=== PATIENT | female | born 2000 | race Caucasian/White ===

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

== ENCOUNTER 2021-06-19 18:41 | Emergency (ER) | payer BC ==
[2021-06-19] MEDS ORDERED: Reglan 10 MG/2 ML IV ONE (18:53)
[2021-06-19] MEDS ORDERED: Sodium Chloride 0.9% 1000 ML 1,000 ML IV STA (18:53)
[2021-06-19] MEDS ORDERED: Reglan 10 MG/2 ML ONE (18:56)
[2021-06-19] MEDS ORDERED: Sodium Chloride 0.9% 1000 ML 1,000 ML ONE (18:56)
[2021-06-19 19:02] LABS: Absolute Neutrophil Ct (ANC) 8.84 (1.4-6.9); BASOPHIL % 0.2 % (0.0-0.4); Basophil (Absolute #) 0.02 (0-0.4); Eosinophil % 0.7 % (0.00-5.0); Eosinophil (Absolute #) 0.09 (0-0.5); Hematocrit 38.1 % (35-47); Hemoglobin 13.2 gm/dl (12.0-16.0); Lymphocyte (Absolute #) 3.31 (1.0-4.6); Lymphocytes % 25.3 % (24.0-44.0); Mean Corpuscular Hemoglobin 30.8 pg (26-32); Mean Corpuscular Hgb Concent. 34.6 g/dl (32-36); Mean Platelet Volume 9.8 fl (7.5-11.0); Monocyte (Absolute #) 0.82 (0.0-1.3); Monocytes % 6.3 % (0.0-12.0); Neutrophil % 67.5 % (36.0-66.0); Platelet Count 323 K/mm3 (150-450); Red Blood Count 4.28 M/mm3 (4.1-5.4); Red Cell Distribution Width 12.8 % (11.5-14.0); White Blood Count 13.1 K/mm3 (4.0-10.5)
--- NOTE | 2021-06-19 19:08 | ERPHSYRPT ---
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 She is approximately 6 weeks gestation and she is not retaining fluids and has not had any care to this point. Timing/Duration: worse Activities at Onset: none Quality: cramping Abdominal Pain Onset Location: epigastric Pain Radiation: no radiation Severity of Pain-Max: mild Severity of Pain-Current: mild Modifying Factors: Improves With: eating, vomiting Associated Symptoms: loss of appetite, nausea, vomiting Previous symptoms: no prior history Allergies/Adverse Reactions: No Known Drug Allergies Allergy (Verified 06/19/21 18:53) Hx Tetanus, Diphtheria Vaccination/Date Given: Yes Hx Influenza Vaccination/Date Given: No Hx Pneumococcal Vaccination/Date Given: No Travel Risk - International Travel Have you traveled outside of the country in past 3 weeks: No - Coronavirus Screening Are you exhibiting any of the following symptoms?: No Close contact with a COVID-19 positive Pt in past 14-21 Days: No - Vaccine Status Have you recieved a Covid-19 vaccination: No - Review of Systems Constitutional: No Fever, No Chills Eyes: No Symptoms Ears, Nose, & Throat: No Symptoms Respiratory: No Cough, No Dyspnea Cardiac: No Chest Pain, No Edema, No Syncope Abdominal/Gastrointestinal: Nausea, Vomiting, No Abdominal Pain, No Diarrhea Genitourinary Symptoms: No Dysuria Musculoskeletal: No Back Pain, No Neck Pain Skin: No Rash Neurological: No Dizziness, No Focal Weakness, No Sensory Changes Psychological: No Symptoms Endocrine: No Symptoms All Other Systems: Reviewed and Negative - Past Medical History Pertinent Past Medical History: No Neurological History: No Pertinent History ENT History: No Pertinent History Cardiac History: No Pertinent History Respiratory History: No Pertinent History Endocrine Medical History: No Pertinent History Musculoskeletal History: No Pertinent History GI Medical History: No Pertinent History History: No Pertinent History Psycho-Social History: No Pertinent History Female Reproductive Disorders: No Pertinent History Other Medical History: 4 molars removed 7 years ago - Past Surgical History Past Surgical History: No Neuro Surgical History: No Pertinent History Cardiac: No Pertinent History Respiratory: No Pertinent History Gastrointestinal: No Pertinent History Genitourinary: No Pertinent History Musculoskeletal: No Pertinent History Female Surgical History: No Pertinent History - Social History Smoking Status: Current every day smoker How long have you smoked: 5 yrs Exposure to second hand smoke: Yes Drug Use: none Patient Lives Alone: No - Female History Hx Last Menstrual Period: 05/03/2021 Hx Now: Yes - Nursing Vital Signs Nursing Vital Signs: Initial Vital Signs Temperature 97.4 F 06/19/21 18:44 Pulse Rate 102 H 06/19/21 18:44 Blood Pressure 130/92 06/19/21 18:44 O2 Sat by Pulse Oximetry 100 06/19/21 18:44 Pain Scale Pain Intensity 0 - Physical Exam General Appearance: no apparent distress, alert Eye Exam: PERRL/EOMI, eyes nml inspection Ears, Nose, Throat Exam: normal ENT inspection, pharynx normal, moist mucous membranes Neck Exam: normal inspection, non-tender, supple, full range of motion Respiratory Exam: normal breath sounds, lungs clear, No respiratory distress Cardiovascular Exam: regular rate/rhythm, normal heart sounds Gastrointestinal/Abdomen Exam: soft, normal bowel sounds, No tenderness, No mass Back Exam: normal inspection, normal range of motion, No CVA tenderness, No vertebral tenderness Extremity Exam: normal inspection, normal range of motion, pelvis stable Neurologic Exam: alert, oriented x 3, cooperative, normal mood/affect, nml cerebellar function, sensation nml, No motor deficits Skin Exam: normal color, warm, dry SpO2 Interpretation: normal SpO2: 100 O2 Delivery: Room Air - Course Nursing assessment & vital signs reviewed: Yes Ordered Tests: Active Orders 24 hr Category Date Time Status IV Insertion STAT Care 06/19/21 18:53 Active AMYLASE Stat Lab 06/19/21 18:58 Completed CBC W DIFF Stat Lab 06/19/21 18:58 Completed CMP Stat Lab 06/19/21 18:58 Completed HCG QUALITATIVE,SERUM Stat Lab 06/19/21 19:00 Completed LIPASE Stat Lab 06/19/21 18:58 Completed UA W/RFX UR CULTURE Stat Lab 06/19/21 18:53 Ordered Medication Summary Discontinued Medications Generic Name Dose Route Start Last Admin Trade Name Adelaide PRN Reason Stop Dose Admin Sodium Chloride 1,000 mls @ 999 mls/hr 06/19/21 18:53 06/19/21 18:59 Sodium Chloride 0.9% 1000 Ml IV 06/19/21 19:53 999 mls/hr .Q1H1M STA Administration Sodium Chloride Confirm 06/19/21 18:56 Sodium Chloride 0.9% 1000 Ml Administered 06/19/21 18:57 Dose 1,000 mls @ ud .ROUTE .STK-MED ONE Metoclopramide HCl 10 mg 06/19/21 18:53 06/19/21 18:59 Reglan 10 Mg/2 Ml IV 06/19/21 18:54 10 mg STAT ONE Administration Metoclopramide HCl Confirm 06/19/21 18:56 Reglan 10 Mg/2 Ml Administered 06/19/21 18:57 Dose 10 mg .ROUTE .STK-MED ONE Lab/Rad Data: Laboratory Result Diagrams 06/19/21 18:58 06/19/21 18:58 Laboratory Results 06/19/21 06/19/21 06/19/21 Range/Units 19:08 19:00 18:58 WBC (4.0-10.5) K/mm3 RBC (4.1-5.4) M/mm3 Hgb (12.0-16.0) gm/dl Hct (35-47) % MCV (78-100) fl MCH (26-32) pg MCHC (32-36) g/dl RDW (11.5-14.0) % Plt Count (150-450) K/mm3 MPV (7.5-11.0) fl Gran % (36.0-66.0) % Eos # (Auto) (0-0.5) Absolute Lymphs (auto) (1.0-4.6) Absolute Monos (auto) (0.0-1.3) Lymphocytes % (24.0-44.0) % Monocytes % (0.0-12.0) % Eosinophils % (0.00-5.0) % Basophils % (0.0-0.4) % Absolute Granulocytes (1.4-6.9) Basophils # (0-0.4) Sodium 135 L (137-145) mmol/L Potassium 3.6 (3.5-5.1) mmol/L Chloride 103 (98-107) mmol/L Carbon Dioxide 19 L (22-30) mmol/L Anion Gap 17.3 H (5-15) MEQ/L BUN 4 L (7-17) mg/dL Creatinine 0.56 (0.52-1.04) mg/dL Estimated GFR > 60.0 ML/MIN Glucose 82 (74-106) mg/dL Calcium 9.7 (8.4-10.2) mg/dL Total Bilirubin 0.60 (0.2-1.3) mg/dL AST 21 (14-36) U/L ALT 11 (0-35) U/L Alkaline Phosphatase 76 (38-126) U/L Serum Total Protein 7.5 (6.3-8.2) g/dL Albumin 4.5 (3.5-5.0) g/dL Amylase 74 (30-110) U/L Lipase 101 (23-300) U/L Serum , Qual POSITIVE (Negative) SARS-CoV-2 (PCR) NEGATIVE (NEGATIVE) 06/19/21 Range/Units 18:58 WBC 13.1 H (4.0-10.5) K/mm3 RBC 4.28 (4.1-5.4) M/mm3 Hgb 13.2 (12.0-16.0) gm/dl Hct 38.1 (35-47) % MCV 89.0 (78-100) fl MCH 30.8 (26-32) pg MCHC 34.6 (32-36) g/dl RDW 12.8 (11.5-14.0) % Plt Count 323 (150-450) K/mm3 MPV 9.8 (7.5-11.0) fl Gran % 67.5 H (36.0-66.0) % Eos # (Auto) 0.09 (0-0.5) Absolute Lymphs (auto) 3.31 (1.0-4.6) Absolute Monos (auto) 0.82 (0.0-1.3) Lymphocytes % 25.3 (24.0-44.0) % Monocytes % 6.3 (0.0-12.0) % Eosinophils % 0.7 (0.00-5.0) % Basophils % 0.2 (0.0-0.4) % Absolute Granulocytes 8.84 H (1.4-6.9) Basophils # 0.02 (0-0.4) Sodium (137-145) mmol/L Potassium (3.5-5.1) mmol/L Chloride (98-107) mmol/L Carbon Dioxide (22-30) mmol/L Anion Gap (5-15) MEQ/L BUN (7-17) mg/dL Creatinine (0.52-1.04) mg/dL Estimated GFR ML/MIN Glucose (74-106) mg/dL Calcium (8.4-10.2) mg/dL Total Bilirubin (0.2-1.3) mg/dL AST (14-36) U/L ALT (0-35) U/L Alkaline Phosphatase (38-126) U/L Serum Total Protein (6.3-8.2) g/dL Albumin (3.5-5.0) g/dL Amylase (30-110) U/L Lipase (23-300) U/L Serum , Qual (Negative) SARS-CoV-2 (PCR) (NEGATIVE) - Progress Progress: improved - Departure Departure Disposition: Home Clinical Impression: Excessive vomiting Condition: Stable Critical Care Time: No Referrals: THERESA ACEVEDO [Primary Care Provider] - Instructions: Nausea and Vomiting of (DC) Prescriptions: Metoclopramide HCl 10 mg [Reglan 10 MG] 10 mg PO Q6H 3 Days #12 tablet
[2021-06-19 19:10] LABS: ALBUMIN 4.5 g/dL (3.5-5.0); ALKALINE PHOSPHATASE 76 U/L (38-126); AMYLASE 74 U/L (30-110); ANION GAP 17.3 MEQ/L (5-15); BLOOD UREA NITROGEN 4 mg/dL (7-17); CHLORIDE 103 mmol/L (98-107); Calcium 9.7 mg/dL (8.4-10.2); Carbon Dioxide 19 mmol/L (22-30); Creatinine 1 0.56 mg/dL (0.52-1.04); EST GLOMERULAR FILTRATION RATE > 60.0 ML/MIN; Glucose 82 mg/dL (74-106); LIPASE 101 U/L (23-300); Potassium 3.6 mmol/L (3.5-5.1); SGOT/AST 21 U/L (14-36); SGPT/ALT 11 U/L (0-35); SODIUM 135 mmol/L (137-145); Total Protein 7.5 g/dL (6.3-8.2)
[2021-06-19 20:09] VITALS: BP 102/70; PULSE 92
[2021-06-19 20:10] VITALS: O2SAT 100
== END 2021-06-19 20:17 | disposition home or self-care (01) ==
LOC: ED 18:41
DX: O21.9 Vomiting of pregnancy, unspecified (principal); Z34.01 Encounter for supervision of normal first pregnancy, first trimester; Z3A.01 Less than 8 weeks gestation of pregnancy
CPT/HCPCS: 36000; 36415; 80053; 81025; 82150; 83690; 85025; 96374; 99284; U0003

== ENCOUNTER 2021-12-11 16:07 | Observation (INO) | payer BC ==
[2021-12-11 17:41] LABS: Amphetamine,Urine NEGATIVE (NEGATIVE); Barbiturate,Urine NEGATIVE (NEGATIVE); Benzodiazepine,Urine NEGATIVE (NEGATIVE); Cocaine,Urine NEGATIVE (NEGATIVE); Methadone,Urine NEGATIVE (NEGATIVE); Opiate,Urine NEGATIVE (NEGATIVE); PCP,Urine NEGATIVE (NEGATIVE); THC,Urine POSITIVE (NEGATIVE)
[2021-12-11 18:25] VITALS: BP 118/77; PULSE 104; O2SAT 100
== END 2021-12-11 17:30 | disposition home or self-care (01) ==
LOC: MED SURG 16:07
PROVIDERS: ADMIT Obstetrics & Gynecology; ATTEND Obstetrics & Gynecology
DX: Z34.83 Encounter for supervision of other normal pregnancy, third trimester (principal); Z3A.31 31 weeks gestation of pregnancy
CPT/HCPCS: 59025; 80307; G0378

== ENCOUNTER 2021-12-11 17:35 | Emergency (ER) | payer BC ==
[2021-12-11 17:47] VITALS: BP 114/84; PULSE 102; O2SAT 98
[2021-12-11 17:47] LABS: Absolute Neutrophil Ct (ANC) 12.19 (1.4-6.9); Basophil (Absolute #) 0.02 (0-0.4); Eosinophil % 0.8 % (0.00-5.0); Eosinophil (Absolute #) 0.13 (0-0.5); Hematocrit 35.9 % (35-47); Hemoglobin 11.6 gm/dl (12.0-16.0); Lymphocyte (Absolute #) 2.32 (1.0-4.6); Lymphocytes % 14.8 % (24.0-44.0); Mean Cell Volume 91.8 fl (78-100); Mean Corpuscular Hemoglobin 29.7 pg (26-32); Mean Corpuscular Hgb Concent. 32.3 g/dl (32-36); Mean Platelet Volume 10.4 fl (7.5-11.0); Monocytes % 6.4 % (0.0-12.0); Neutrophil % 77.9 % (36.0-66.0); Platelet Count 369 K/mm3 (150-450); Red Blood Count 3.91 M/mm3 (4.1-5.4); Red Cell Distribution Width 13.2 % (11.5-14.0); White Blood Count 15.7 K/mm3 (4.0-10.5)
[2021-12-11 17:54] LABS: ALBUMIN 4.1 g/dL (3.5-5.0); ALKALINE PHOSPHATASE 182 U/L (38-126); BLOOD UREA NITROGEN 8 mg/dL (7-17); CHLORIDE 103 mmol/L (98-107); Calcium 9.7 mg/dL (8.4-10.2); Carbon Dioxide 23 mmol/L (22-30); Creatinine 1 0.58 mg/dL (0.52-1.04); EST GLOMERULAR FILTRATION RATE > 60.0 ML/MIN; Glucose 83 mg/dL (74-106); SGOT/AST 278 U/L (14-36); SGPT/ALT 593 U/L (0-35); SODIUM 135 mmol/L (137-145)
[2021-12-11] MEDS ORDERED: BENADRYL 50 MG/ML IM ONE (17:56)
[2021-12-11] MEDS ORDERED: BENADRYL 50 MG/ML ONE (18:03)
[2021-12-11 18:26] LABS: Appearance CLOUDY (CLEAR); Bacteria MODERATE /HPF (NEGATIVE); Bilirubin NEGATIVE (NEGATIVE); Blood NEGATIVE Ery/ul (0-5); Epithelial Cells RARE /HPF (FEW); Glucose NEGATIVE (NEGATIVE); Ketones NEGATIVE (NEGATIVE); Leukocyte Esterase TRACE (NEGATIVE); Mucus MODERATE /HPF (NEGATIVE); Nitrite NEGATIVE (NEGATIVE); Protein,Urine Dip 30 (Negative); RBC 0-2 /HPF (0-2); Specific Gravity 1.025 (1.005-1.025); Urobilinogen 2 mg/dL (0-1)
--- NOTE | 2021-12-11 18:36 | ERPHSYRPT ---
- History of Present Illness Time Seen by Provider: 12/11/21 17:46 Source: patient Exam Limitations: no limitations Patient Subjective Stated Complaint: rash-itching Triage Nursing Assessment: Patient ambulated back to ED from OB. Patient A+O X3. Patient's skin pink, warm and dry. Patient currently 31 weeks . Patient complains of itching all over her body for 3 days. No rash or hives noted. Patient does have scratch dixon noted to mary arms and legs. Patient denies pain or discomfort. Patient was cleared per OB prior to coming to ED. Physician History: 21 years old 2 para 1 at 31 weeks gestation presented in the ER with 3 days history of generalized itching with progressive worsening. Patient reports no obvious identifiable cause. No abdominal pain nausea vomiting. Denies any pelvic cramping, vaginal bleeding or discharge. No history of similar symptoms in previous . Patient has been evaluated by OB with NST with no acute findings and then sent to the ER for symptomatic relief and CBC/CMP and bile salt recommended by OB. Timing/Duration: day(s) (3), constant, gradual onset, worse Quality: itchy Severity: moderate Possible Causes: no cause identified Modifying Factors: Worsens With: scratching Associated Symptoms: rash, No blisters, No difficulty breathing, No edema, No fever, No flushing, No nasal congestion, No paresthesia Allergies/Adverse Reactions: No Known Drug Allergies Allergy (Verified 12/11/21 17:36) Hx Tetanus, Diphtheria Vaccination/Date Given: Yes Hx Influenza Vaccination/Date Given: No Hx Pneumococcal Vaccination/Date Given: No Immunizations Up to Date: Yes Travel Risk - International Travel Have you traveled outside of the country in past 3 weeks: No - Coronavirus Screening Are you exhibiting any of the following symptoms?: No Close contact with a COVID-19 positive Pt in past 14-21 Days: No - Vaccine Status Have you recieved a Covid-19 vaccination: No - Review of Systems Constitutional: No Symptoms Eyes: No Symptoms Ears, Nose, & Throat: No Symptoms Respiratory: No Symptoms Cardiac: No Symptoms Abdominal/Gastrointestinal: No Symptoms Genitourinary Symptoms: No Symptoms Musculoskeletal: No Symptoms Skin: Pruritis Neurological: No Symptoms Psychological: No Symptoms Endocrine: No Symptoms Hematologic/Lymphatic: No Symptoms Immunological/Allergic: No Symptoms - Past Medical History Pertinent Past Medical History: No Neurological History: No Pertinent History ENT History: No Pertinent History Cardiac History: No Pertinent History Respiratory History: No Pertinent History Endocrine Medical History: No Pertinent History Musculoskeletal History: No Pertinent History GI Medical History: No Pertinent History History: No Pertinent History Psycho-Social History: No Pertinent History Female Reproductive Disorders: No Pertinent History Other Medical History: 4 molars removed 7 years ago - Past Surgical History Past Surgical History: No Neuro Surgical History: No Pertinent History Cardiac: No Pertinent History Respiratory: No Pertinent History Gastrointestinal: No Pertinent History Genitourinary: No Pertinent History Musculoskeletal: No Pertinent History Female Surgical History: No Pertinent History - Social History Smoking Status: Current every day smoker How long have you smoked: 5 yrs Exposure to second hand smoke: Yes Drug Use: none Patient Lives Alone: No - Female History Hx Last Menstrual Period: unknown Hx Now: Yes Expected Date of Delivery: 02/07/22 - Nursing Vital Signs Nursing Vital Signs: Initial Vital Signs Temperature 97.8 F 12/11/21 17:37 Pulse Rate 102 H 12/11/21 17:37 Respiratory Rate 18 12/11/21 17:37 Blood Pressure 114/84 12/11/21 17:37 O2 Sat by Pulse Oximetry 99 12/11/21 17:37 Pain Scale Pain Intensity 0 - Physical Exam General Appearance: no apparent distress, alert, anxiety Eye Exam: PERRL/EOMI, eyes nml inspection Ears, Nose, Throat Exam: normal ENT inspection, TMs normal, pharynx normal, moist mucous membranes Neck Exam: normal inspection, non-tender, supple, full range of motion Respiratory Exam: normal breath sounds, lungs clear Cardiovascular Exam: regular rate/rhythm, normal heart sounds Gastrointestinal/Abdomen Exam: soft, normal bowel sounds, other (Gravid uterus), No tenderness Back Exam: normal inspection, normal range of motion Extremity Exam: normal inspection, normal range of motion Neurologic Exam: alert, oriented x 3, cooperative, 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 as 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 Skin Exam: rash (Multiple itch dixon on arms/abdomen/lower extremities) SpO2 Interpretation: normal SpO2: 98 O2 Delivery: Room Air Ordered Tests: Active Orders 24 hr Category Date Time Status CBC W DIFF Stat Lab 12/11/21 17:43 Completed CMP Stat Lab 12/11/21 17:43 Completed CULTURE,URINE Stat Lab 12/11/21 17:43 Received UA W/RFX UR CULTURE Stat Lab 12/11/21 17:43 Completed Medication Summary Discontinued Medications Generic Name Dose Route Start Last Admin Trade Name Adelaide PRN Reason Stop Dose Admin Diphenhydramine HCl 25 mg 12/11/21 17:56 12/11/21 18:04 Diphenhydramine Hcl 50 Mg/Ml Vial IM 12/11/21 17:57 25 mg STAT ONE Administration Diphenhydramine HCl Confirm 12/11/21 18:03 Diphenhydramine Hcl 50 Mg/Ml Vial Administered 12/11/21 18:04 Dose 50 mg .ROUTE .STK-MED ONE Nitrofurantoin Macrocrystals 100 mg 12/11/21 19:22 Nitrofurantoin Macro 100 Mg Capsule PO 12/11/21 19:23 STAT ONE Nitrofurantoin Macrocrystals Confirm 12/11/21 19:47 Nitrofurantoin Macro 100 Mg Capsule Administered 12/11/21 19:48 Dose 100 mg .ROUTE .STK-MED ONE Ursodiol 300 mg 12/11/21 19:16 Ursodiol 300 Mg Cap PO 12/11/21 19:17 ONCE STA Lab/Rad Data: Laboratory Result Diagrams 12/11/21 17:43 12/11/21 17:43 Laboratory Results 12/11/21 12/11/21 12/11/21 Range/Units 17:43 17:43 17:43 WBC 15.7 H (4.0-10.5) K/mm3 RBC 3.91 L (4.1-5.4) M/mm3 Hgb 11.6 L (12.0-16.0) gm/dl Hct 35.9 (35-47) % MCV 91.8 (78-100) fl MCH 29.7 (26-32) pg MCHC 32.3 (32-36) g/dl RDW 13.2 (11.5-14.0) % Plt Count 369 (150-450) K/mm3 MPV 10.4 (7.5-11.0) fl Gran % 77.9 H (36.0-66.0) % Eos # (Auto) 0.13 (0-0.5) Absolute Lymphs (auto) 2.32 (1.0-4.6) Absolute Monos (auto) 1.00 (0.0-1.3) Lymphocytes % 14.8 L (24.0-44.0) % Monocytes % 6.4 (0.0-12.0) % Eosinophils % 0.8 (0.00-5.0) % Basophils % 0.1 (0.0-0.4) % Absolute Granulocytes 12.19 H (1.4-6.9) Basophils # 0.02 (0-0.4) Sodium 135 L (137-145) mmol/L Potassium 4.0 (3.5-5.1) mmol/L Chloride 103 (98-107) mmol/L Carbon Dioxide 23 (22-30) mmol/L Anion Gap 13.0 (5-15) MEQ/L BUN 8 (7-17) mg/dL Creatinine 0.58 (0.52-1.04) mg/dL Estimated GFR > 60.0 ML/MIN Glucose 83 (74-106) mg/dL Calcium 9.7 (8.4-10.2) mg/dL Total Bilirubin 0.70 (0.2-1.3) mg/dL AST 278 H (14-36) U/L ALT 593 H (0-35) U/L Alkaline Phosphatase 182 H (38-126) U/L Serum Total Protein 8.0 (6.3-8.2) g/dL Albumin 4.1 (3.5-5.0) g/dL Urine Color LILY (YELLOW) Urine Appearance CLOUDY (CLEAR) Urine pH 6.0 (5-6) Ur Specific [place] 1.025 (1.005-1.025) Urine Protein 30 (Negative) Urine Ketones NEGATIVE (NEGATIVE) Urine Blood NEGATIVE (0-5) Ramone/ul Urine Nitrite NEGATIVE (NEGATIVE) Urine Bilirubin NEGATIVE (NEGATIVE) Urine Urobilinogen 2 (0-1) mg/dL Ur Leukocyte Esterase TRACE (NEGATIVE) Urine WBC (Auto) 6-10 (0-5) /HPF Urine RBC (Auto) 0-2 (0-2) /HPF U Epithel Cells (Auto) RARE (FEW) /HPF Urine Bacteria (Auto) MODERATE (NEGATIVE) /HPF Urine Mucus (Auto) MODERATE (NEGATIVE) /HPF Urine Culture Reflexed YES (NO) Urine Glucose NEGATIVE (NEGATIVE) mg/dL - Progress Progress: improved Progress Note: she is given Benadryl and feeling better. Baseline labs along with bile salts are obtained. Bile salts are pending but has elevated ALT/AST with normal bilirubin and white count of 15. Does have UTI and started on Macrobid. Discussed with Dr. Tran and patient is started on ursodiol. I have discussed with Dr. Araujo as well who is the primary OB for the patient and he agrees with current management And patient would be evaluated sometimes next week. I have discussed with patient in detail about nature of issue and harmful effect on the and importance of follow-up and she agreed with it. Outpatient follow-up with her OB in 2 days. Discussed signs symptoms of worsening needing return to ER which she seems understanding 12/11/21 19:[address] Tracie, Other (Dr. Tobias) Counseled pt/family regarding: lab results, diagnosis, need for follow-up - Departure Clinical Impression: Cholestasis during in third trimester UTI in Qualifiers: Trimester: third trimester Qualified Code(s): O23.43 - Unspecified infection of urinary tract in , third trimester Condition: Stable Critical Care Time: No Referrals: FRANKLIN TOBIAS MD [Primary Care Provider] - Follow up/PCP as directed (In 2 days for reevaluation) Instructions: Cholestasis of (DC) Additional Instructions: Take Benadryl as needed. Keep yourself well-hydrated. Continue with ursodiol and antibiotics and follow instructions by your OB for the duration of medications. Follow-up with your OB for reevaluation in 2 days. Return to ER for worsening of itching or if having pelvic cramping, vaginal bleeding discharge, decreased movements etc. Prescriptions: Diphenhydramine HCl 25 mg [Benadryl 25 mg Capsule] 25 mg PO Q4H PRN PRN #20 cap PRN Reason: Allergies Ursodiol 300 mg [Actigall 300MG] 300 mg PO BID #20 cap Nitrofurantoin Macro 100 mg [Macrobid 100MG Capsule] 100 mg PO BID #14 cap
[2021-12-11] MEDS ORDERED: Actigall 300MG PO STA (19:16)
[2021-12-11] MEDS ORDERED: Macrobid 100MG Capsule PO ONE (19:22)
[2021-12-11] MEDS ORDERED: Macrobid 100MG Capsule ONE (19:47)
== END 2021-12-11 20:14 | disposition home or self-care (01) ==
LOC: ED 17:35
DX: O26.613 Liver and biliary tract disorders in pregnancy, third trimester (principal); O23.43 Unspecified infection of urinary tract in pregnancy, third trimester; K83.1 Obstruction of bile duct; Z3A.31 31 weeks gestation of pregnancy; Z72.0 Tobacco use
CPT/HCPCS: 36415; 80053; 81001; 82239; 85025; 87086; 96372; 99284; J1200; A9270-GY

== ENCOUNTER 2021-12-30 11:40 | Observation (INO) | payer BC ==
[2021-12-30] MEDS ORDERED: Lactated Ringers 500 ML IV ONE (12:06)
[2021-12-30] MEDS ORDERED: Lactated Ringers 1,000 ML IV ONE (12:08)
[2021-12-30] MEDS ORDERED: Celestone Soluspan 6MG/ML IM ONE (12:08)
[2021-12-30] MEDS ORDERED: OMNIPEN 2 GM*** 2 G in Sodium Chloride 100ML MINI-BAG PLUS 100 ML IV ONE (12:23)
[2021-12-30] MEDS ORDERED: PROCARDIA 10 MG PO ONE (12:49)
[2021-12-30] MEDS ORDERED: Magnesium Sulfate 40 Gm/1000 Ml H2O Premix*** 1,000 ML IV ONE (12:59)
[2021-12-30 13:14] LABS: ABO TYPING A; Antibody Screen NEGATIVE (NEGATIVE); RH TYPING POSITIVE
[2021-12-30] MEDS ORDERED: Magnesium Sulfate 40 Gm/1000 Ml H2O Premix*** 1,000 ML IV SCH (19:00)
[2021-12-30 19:45] VITALS: O2SAT 100
[2021-12-30 19:46] VITALS: BP 147/89; PULSE 89
[2021-12-30 20:11] LABS: Amphetamine,Urine NEGATIVE (NEGATIVE); Barbiturate,Urine NEGATIVE (NEGATIVE); Benzodiazepine,Urine NEGATIVE (NEGATIVE); Cocaine,Urine NEGATIVE (NEGATIVE); Methadone,Urine NEGATIVE (NEGATIVE); Opiate,Urine NEGATIVE (NEGATIVE); PCP,Urine NEGATIVE (NEGATIVE); THC,Urine POSITIVE (NEGATIVE)
--- NOTE | 2022-01-03 10:38 | PCM.SSS ---
History of Present Illness - Chief Complaint Chief Complaint: R/O labor History of Present Illness: is a 21 year old female. 21 YO IUP 34 5/7 WKS GESTATION WITH HX OF CHOLESTASIS OF PRESENTED TO LABOR DELIVERY FOR REGULAR UTERINE CONTX EVERY 2-3 MINUTES. DENIES SROM OR VAGINAL BLEEDING AND STATES GOOD MOVEMENT.. LAST TOOK MEDICATION FOR CHOLESTASIS OF 3 DAYS PRIOR. PMHX; CHOLESTASIS OF PSURGHX; X 1 NKDA SOCIAL; SMOKING EXAM; /-2/VTX/INTACT A/P IUP AT 34 5/7 WKS GESTATION DW MFM DR LAGUNAS AND AT THIS TIME WILL START MGSO4 AND TRANSFER TO [facility] FOR FURTHER CARE WILL GIVE FIRST DOSE CELSTONE AT THIS TIME PT WAS SUBSEQUENTLY TRANSFERRED WITHOUT ISSUE WITH NURSE PRESENT AT TIME OF TRANSFER Medications & Allergies Home Medications: Home Medication List Diphenhydramine HCl 25 mg [Benadryl 25 mg Capsule] 25 mg PO Q4H PRN PRN #20 cap 12/11/21 [Rx] Nitrofurantoin Macro 100 mg [Macrobid 100MG Capsule] 100 mg PO BID #14 cap 12/11/21 [Rx] Ursodiol 300 mg [Actigall 300MG] 300 mg PO BID #20 cap 12/11/21 [Rx] Allergies/Adverse Reactions: Allergies Allergy/AdvReac Type Severity Reaction Status Date / Time No Known Drug Allergies Allergy Verified 12/11/21 17:36 - Past Medical History Past Medical History: No Neurological History: No Pertinent History ENT History: No Pertinent History Cardiac History: No Pertinent History Respiratory History: No Pertinent History Endocrine Medical History: No Pertinent History Musculoskelatal History: No Pertinent History GI Medical History: No Pertinent History History: No Pertinent History Pyscho-Social History: No Pertinent History Reproductive Disorders: No Pertinent History Comment: 4 molars removed 7 years ago - Female History Expected Date of Delivery: 02/07/22 - Past Surgical History Past Surgical History: No Neuro Surgical History: No Pertinent History Cardiac History: No Pertinent History Respiratory Surgery: No Pertinent History GI Surgical History: No Pertinent History Genitourinary Surgical Hx: No Pertinent History Musculskeletal Surgical Hx: No Pertinent History Female Surgical History: No Pertinent History - Social History Smoking Status: Current every day smoker How long have you smoked: 5 yrs Exposure to second hand smoke: Yes Alcohol: None Drug Use: none Assessment/Plan (1) labor Status: Acute Code(s): O60.00 - LABOR WITHOUT DELIVERY, UNSPECIFIED TRIMESTER (2) Cholestasis Status: Acute Code(s): K83.1 - OBSTRUCTION OF BILE DUCT Hospital Summary - Hospital Course Hospital Course: PT WAS SEEN IN LABOR AND DELIVERY FOR LABOR AND WAS NOTED BEING 2-3/70/-2/VTX/INTACT AND WAS SUBSEQUENTLY TRANSFERRED TO [facility] SHE WAS DR SHAW PT AND WAS TRANSFERRED WITHOUT MEDICAL ISSUE VIA AMBULANCE SERVICE WHILE SHE WAS PLACED ON MGSO4. FIRST DOSE CELESTONE WAS GIVEN. - Vitals & Intake/Output Vital Signs: Vital Signs Temperature 97.9 F 12/30/21 12:30 Pulse Rate 89 12/30/21 12:50 Respiratory Rate 20 12/30/21 12:50 Blood Pressure 147/89 12/30/21 12:50 O2 Sat by Pulse Oximetry 100 12/30/21 12:30 Intake & Output: Intake & Output 12/31/21 01/01/22 01/02/22 01/03/22 11:59 11:59 11:59 11:59 Weight 54.431 kg - Discharge Disposition: DC TO [facility] Condition: Stable Prescriptions: No Action Ursodiol 300 mg [Actigall 300MG] 300 mg PO BID #20 cap Nitrofurantoin Macro 100 mg [Macrobid 100MG Capsule] 100 mg PO BID #14 cap Diphenhydramine HCl 25 mg [Benadryl 25 mg Capsule] 25 mg PO Q4H PRN PRN #20 cap PRN Reason: Allergies Follow up with: FRANKLIN VERA MD [Primary Care Provider] -
== END 2021-12-30 14:10 | disposition home or self-care (01) ==
LOC: OB 11:40
PROVIDERS: ADMIT Family Medicine; ATTEND Family Medicine
DX: Z34.83 Encounter for supervision of other normal pregnancy, third trimester (principal); Z3A.34 34 weeks gestation of pregnancy
CPT/HCPCS: 36415; 80307; 86850; 86900; 86901; G0378; J0290; J0702

== ENCOUNTER 2022-05-08 16:50 | Emergency (ER) | payer BC, OTHER ==
[2022-05-08 16:58] VITALS: BP 118/79; PULSE 78; O2SAT 98
[2022-05-08] MEDS ORDERED: TORAdol 30 mg Injection IM ONE (17:26)
[2022-05-08] MEDS ORDERED: Augmentin 875-125 Tablet PO ONE (17:26)
[2022-05-08] MEDS ORDERED: Augmentin 875-125 Tablet ONE (18:05)
[2022-05-08] MEDS ORDERED: TORAdol 30 mg Injection ONE (18:05)
--- NOTE | 2022-05-08 18:20 | ERPHSYRPT ---
- History of Present Illness Time Seen by Provider: 05/08/22 16:58 Source: patient Exam Limitations: no limitations Patient Subjective Stated Complaint: pt here for pain to mouth, she has multi caries, and states her right lower jaw hurts, this is a chronic problems for her Triage Nursing Assessment: pt alert, walked . resp easy, skin w/d/p. has multi dental caries nad broken teeth, Physician History: 22-year-old presents to ER with chief complaint of right lower jaw pain and swelling for the last 4 to 5 days. Patient reports having history of dental caries and multiple dental work-up done in the past, planning on getting dentures and noticed gradually increasing swelling and pain moderate intensity sharp, more with movements of jaw without any fever. No tongue swelling or swelling floor of mouth are sore throat. Timing/Duration: abrupt onset, days (5) Severity: moderate ENT Location: mouth, dental Prearrival Treatment: over the counter meds Associated Symptoms: tooth pain Allergies/Adverse Reactions: No Known Drug Allergies Allergy (Verified 05/08/22 17:02) Hx Tetanus, Diphtheria Vaccination/Date Given: No Hx Influenza Vaccination/Date Given: No Hx Pneumococcal Vaccination/Date Given: No Immunizations Up to Date: Yes Travel Risk - International Travel Have you traveled outside of the country in past 3 weeks: No - Coronavirus Screening Are you exhibiting any of the following symptoms?: No Close contact with a COVID-19 positive Pt in past 14-21 Days: No - Vaccine Status Have you recieved a Covid-19 vaccination: No - Review of Systems Constitutional: No Symptoms Eyes: No Symptoms Ears, Nose, & Throat: Mouth Pain Respiratory: No Symptoms Cardiac: No Symptoms Abdominal/Gastrointestinal: No Symptoms Genitourinary Symptoms: No Symptoms Musculoskeletal: No Symptoms Neurological: No Symptoms Hematologic/Lymphatic: No Symptoms - Past Medical History Pertinent Past Medical History: No Neurological History: No Pertinent History ENT History: No Pertinent History Cardiac History: No Pertinent History Respiratory History: No Pertinent History Endocrine Medical History: No Pertinent History Musculoskeletal History: No Pertinent History GI Medical History: No Pertinent History History: No Pertinent History Psycho-Social History: No Pertinent History Female Reproductive Disorders: No Pertinent History Other Medical History: 4 molars removed 7 years ago - Past Surgical History Past Surgical History: No Neuro Surgical History: No Pertinent History Cardiac: No Pertinent History Respiratory: No Pertinent History Gastrointestinal: No Pertinent History Genitourinary: No Pertinent History Musculoskeletal: No Pertinent History Female Surgical History: No Pertinent History - Social History Smoking Status: Current every day smoker How long have you smoked: 5 yrs Exposure to second hand smoke: Yes Drug Use: none Patient Lives Alone: No - Female History Hx Last Menstrual Period: now Hx Now: No - Nursing Vital Signs Nursing Vital Signs: Initial Vital Signs Temperature 97.2 F 05/08/22 16:57 Pulse Rate 78 05/08/22 16:57 Respiratory Rate 18 05/08/22 16:57 Blood Pressure 118/79 05/08/22 16:57 O2 Sat by Pulse Oximetry 98 05/08/22 16:57 Pain Scale Pain Intensity 8 - Physical Exam General Appearance: no apparent distress, alert Eye Exam: right eye: EOMI, bilateral eye: normal inspection, PERRL Ear Exam: bilateral ear: auricle normal, canal normal, TM normal Nasal Exam: normal inspection Throat Exam: normal, pharynx normal, dental tenderness (Right lower premolar and molar area with associated gingival swelling. No fluctuation.) Neck Exam: normal inspection, non-tender, supple, full range of motion, lymphadenopathy (R) Cardiovascular/Respiratory Exam: normal breath sounds, regular rate/rhythm Neurologic Exam: alert, oriented x 3, cooperative, computer specialist II-XII nml as tested Skin Exam: normal color SpO2 Interpretation: normal SpO2: 98 O2 Delivery: Room Air Ordered Tests: Medication Summary Discontinued Medications Generic Name Dose Route Start Last Admin Trade Name Freq PRN Reason Stop Dose Admin Amoxicillin/Clavulanate Potassium 875 mg 05/08/22 17:26 05/08/22 18:12 Amox Tr/Potassium Clavulanate 875 Mg Tablet PO 05/08/22 17:27 875 mg STAT ONE Administration Amoxicillin/Clavulanate Potassium Confirm 05/08/22 18:05 Amox Tr/Potassium Clavulanate 875 Mg Tablet Administered 05/08/22 18:06 Dose 875 mg .ROUTE .STK-MED ONE Ketorolac Tromethamine 30 mg 05/08/22 17:26 05/08/22 18:11 Ketorolac Tromethamine 30 Mg/Ml Inj IM 05/08/22 17:27 30 mg STAT ONE Administration Ketorolac Tromethamine Confirm 05/08/22 18:05 Ketorolac Tromethamine 30 Mg/Ml Inj Administered 05/08/22 18:06 Dose 30 mg .ROUTE .STK-MED ONE - Progress Progress: pain not gone completely Progress Note: 05/08/22 18:19 She is given Toradol for symptomatic relief and started on Augmentin. Outpatient dental follow-up recommended. Counseled pt/family regarding: diagnosis, need for follow-up - Departure Departure Disposition: Home Clinical Impression: Dental infection Condition: Stable Critical Care Time: No Referrals: THERESA FINK MD [Primary Care Provider] - Follow Up with PCP/3 days HEMANT ROBERTS DDS [NON-STAFF PHY W/O PRIVILEGES] - Follow up/PCP as directed (Call tomorrow for appointment) Instructions: Tooth Abscess (DC), Dental Pain (DC) Additional Instructions: Take Tylenol/ibuprofen as needed. Follow-up with dentist for reevaluation. Return to ER for any worsening pain swelling, fever chills, difficulty swallowing etc. Prescriptions: Ibuprofen 600 mg PO Q6HPRN PRN 10 Days #20 tablet PRN Reason: Pain Amox Tr/Potass Clav. 875 mg [Augmentin 875-125 Tablet] 875 mg PO BID #14 tablet
== END 2022-05-08 18:41 | disposition home or self-care (01) ==
LOC: ED 16:50
DX: K04.7 Periapical abscess without sinus (principal); R68.84 Jaw pain; K02.9 Dental caries, unspecified; Z72.0 Tobacco use; Z28.310 Unvaccinated for COVID-19
CPT/HCPCS: 96372; 99283; J1885; A9270-GY

== ENCOUNTER 2022-05-11 01:49 | Observation (INO) | payer BC, OTHER ==
--- NOTE | 2022-05-11 01:57 | ERPHSYRPT ---
- History of Present Illness Time Seen by Provider: 05/11/22 01:55 Source: patient Physician History: Patient is 22-year-old female presents to our ED with her boyfriend for evaluation of alcohol intoxication. Patient's boyfriend states that they got into an argument. Boyfriend left the hotel room and later returned to find the new unused 16 ounce bottle of vodka empty. Boyfriend believes that patient drank the entire bottle in a short period of time. The timeframe is not certain at this time. Patient appeared intoxicated. Her boyfriend placed patient in the shower to help her sober up. Boyfriend noticed that she appeared to be spitting up and possibly foaming from the mouth. He became concerned and brought patient to our ED. Upon arrival patient smells of alcohol. Patient eas linda aroused to verbal and tactile stimulation. No signs of trauma. Patient unable to provide information towards his HPI due to condition. Timing/Duration: today Severity: moderate Modifying Factors: Improves With: nothing Associated Symptoms: denies symptoms Allergies/Adverse Reactions: No Known Drug Allergies Allergy (Verified 05/11/22 02:08) Home Medications: No Reportable Medications [No Reported Medications] 05/11/22 [History] Hx Tetanus, Diphtheria Vaccination/Date Given: No Hx Influenza Vaccination/Date Given: No Hx Pneumococcal Vaccination/Date Given: No Travel Risk - Vaccine Status Have you recieved a Covid-19 vaccination: No - Review of Systems All Other Systems: Unable due to condition - Past Medical History Pertinent Past Medical History: No Neurological History: No Pertinent History ENT History: No Pertinent History Cardiac History: No Pertinent History Respiratory History: No Pertinent History Endocrine Medical History: No Pertinent History Musculoskeletal History: No Pertinent History GI Medical History: No Pertinent History History: No Pertinent History Psycho-Social History: No Pertinent History Female Reproductive Disorders: No Pertinent History Other Medical History: 4 molars removed 7 years ago - Past Surgical History Past Surgical History: No Neuro Surgical History: No Pertinent History Cardiac: No Pertinent History Respiratory: No Pertinent History Gastrointestinal: No Pertinent History Genitourinary: No Pertinent History Musculoskeletal: No Pertinent History Female Surgical History: No Pertinent History - Social History Smoking Status: Current every day smoker How long have you smoked: 5 yrs Exposure to second hand smoke: Yes Drug Use: none Patient Lives Alone: No - Female History Hx Now: No - Nursing Vital Signs Nursing Vital Signs: Initial Vital Signs Temperature 96.5 F 05/11/22 01:50 Pulse Rate 75 05/11/22 01:50 Respiratory Rate 18 05/11/22 01:50 Blood Pressure 93/76 05/11/22 01:50 O2 Sat by Pulse Oximetry 97 05/11/22 01:50 Pain Scale Pain Intensity 0 - Physical Exam General Appearance: other (Patient smells of alcohol.) Eye Exam: PERRL/EOMI, eyes nml inspection, other (Sluggish pupils) Ears, Nose, Throat Exam: normal ENT inspection, TMs normal, pharynx normal, moist mucous membranes Neck Exam: normal inspection, non-tender, supple, full range of motion Respiratory Exam: normal breath sounds, lungs clear, airway intact, No respiratory distress Cardiovascular Exam: regular rate/rhythm, normal heart sounds, normal peripheral pulses Gastrointestinal/Abdomen Exam: soft, normal bowel sounds, No tenderness, No mass Back Exam: normal inspection, normal range of motion, No CVA tenderness, No vertebral tenderness Extremity Exam: normal inspection, normal range of motion, pelvis stable Neurologic Exam: other (Patient is intoxicated, responds to tactile stimulation.), No motor deficits Skin Exam: normal color, warm, dry, No rash Lymphatic Exam: No adenopathy SpO2 Interpretation: normal SpO2: 97 O2 Delivery: Room Air - Course Nursing assessment & vital signs reviewed: Yes EKG Interpreted by Me: RATE (65), Sinus Rhythm, NORMAL AXIS, NORMAL INTERVALS - CT Exams Head CT Interpretation: Tele-radiologist Report (No acute intracranial abnormality) Ordered Tests: Active Orders 24 hr Category Date Time Status Stained Glass Glazier Helper STAT Care 05/11/22 01:52 Active IV Insertion STAT Care 05/11/22 01:51 Active HEAD WITHOUT CONTRAST [CT] Stat Exams 05/11/22 01:52 Taken ACETAMINOPHEN Stat Lab 05/11/22 02:36 Completed CBC W DIFF Stat Lab 05/11/22 02:36 Completed CMP Stat Lab 05/11/22 02:36 Completed CULTURE,URINE Stat Lab 05/11/22 02:47 Received ETHYL ALCOHOL Stat Lab 05/11/22 02:36 Completed HCG,QUALITATIVE URINE Stat Lab 05/11/22 02:31 Completed SALICYLATE Stat Lab 05/11/22 02:36 Completed UA W/RFX CULTURE Stat Lab 05/11/22 02:32 Completed Urine Triage Profile Stat Lab 05/11/22 02:31 Completed Transfer Order Routine Transfer 05/11/22 Ordered Medication Summary Generic Name Dose Route Start Last Admin Trade Name [place] PRN Reason Stop Dose Admin Sodium Chloride 1,000 mls @ 100 mls/hr 05/11/22 02:00 05/11/22 02:35 Sodium Chloride 0.9% 1000 Ml IV 06/10/22 01:59 100 mls/hr .Q10H DANNY Administration Potassium Chloride 20 meq in 100 mls @ 50 mls/hr 05/11/22 04:30 Potassium Chloride 20 Meq In Water 100ml IV 05/11/22 08:29 Q2H DANNY Lab/Rad Data: Laboratory Result Diagrams 05/11/22 02:36 05/11/22 02:36 Laboratory Results 05/11/22 05/11/22 05/11/22 Range/Units 03:34 02:36 02:36 WBC 6.2 (4.0-10.5) x10^3/uL RBC 3.98 L (4.1-5.4) x10^6/uL Hgb 11.6 L (12.0-16.0) g/dL Hct 35.8 (35-47) % MCV 89.9 (78-100) fL MCH 29.1 (26-32) pg MCHC 32.4 (32-36) g/dL RDW 12.3 (11.5-14.0) % Plt Count 312 (150-450) x10^3/uL MPV 9.4 (7.5-11.0) fL Gran % 47.3 (36.0-66.0) % Immature Gran % (Auto) 0.3 (0.00-0.4) % Nucleat RBC Rel Count 0.0 (0.00-0.1) % Eos # (Auto) 0.17 (0-0.5) x10^3/uL Immature Gran # (Auto) 0.02 (0.00-0.03) x10^3u/L Absolute Lymphs (auto) 2.65 (1.0-4.6) x10^3/uL Absolute Monos (auto) 0.39 (0.0-1.3) x10^3/uL Absolute Nucleated RBC 0.00 (0.00-0.01) x10^3u/L Lymphocytes % 42.8 (24.0-44.0) % Monocytes % 6.3 (0.0-12.0) % Eosinophils % 2.7 (0.00-5.0) % Basophils % 0.6 (0.0-0.4) % Absolute Granulocytes 2.92 (1.4-6.9) x10^3/uL Basophils # 0.04 (0-0.4) x10^3/uL Sodium 140 (137-145) mmol/L Potassium 3.3 L (3.5-5.1) mmol/L Chloride 104 (98-107) mmol/L Carbon Dioxide 23 (22-30) mmol/L Anion Gap 15.4 H (5-15) MEQ/L BUN 14 (7-17) mg/dL Creatinine 0.81 (0.52-1.04) mg/dL Estimated GFR > 60.0 ML/MIN Glucose 84 (74-106) mg/dL Calcium 9.4 (8.4-10.2) mg/dL Total Bilirubin 0.40 (0.2-1.3) mg/dL AST 25 (14-36) U/L ALT 15 (0-35) U/L Alkaline Phosphatase 85 (38-126) U/L Serum Total Protein 7.5 (6.3-8.2) g/dL Albumin 4.2 (3.5-5.0) g/dL Urinalys Dipstick Clnc Urine Color (YELLOW) Urine Appearance (CLEAR) Urine pH (5-6) Ur Specific [place] (1.005-1.025) POC Urine Protein Conf (Negative) Urine Ketones (NEGATIVE) Urine Nitrite (NEGATIVE) Urine Bilirubin (NEGATIVE) Urine Urobilinogen (0-1) mg/dL Urine Leukocytes (NEGATIVE) Urine WBC (Auto) (0-5) /HPF Urine RBC (Auto) (0-2) /HPF U Epithel Cells (Auto) (FEW) /HPF Urine Bacteria (Auto) (NEGATIVE) /HPF Urine RBC (0-5) Ramone/ul Urine Mucus (Auto) (NEGATIVE) /HPF Ur Culture Indicated? Urine Glucose (NEGATIVE) mg/dL Urine HCG, Qual (Negative) Salicylates < 1.0 L (2-20) mg/dL Urine Opiates Level (NEGATIVE) Ur Methadone (NEGATIVE) Acetaminophen < 10 L (10-30) ug/ml Urine Barbiturates (NEGATIVE) Ur Phencyclidine (PCP) (NEGATIVE) Urine Amphetamine (NEGATIVE) U Benzodiazepine Level (NEGATIVE) Urine Cocaine (NEGATIVE) Urine Marijuana (THC) (NEGATIVE) Ethyl Alcohol 227 H (0-10) mg/dL Influenza Type A Ag NEGATIVE (NEGATIVE) Influenza Type B Ag NEGATIVE (NEGATIVE) RSV (PCR) NEGATIVE (Negative) SARS-CoV-2 (PCR) NEGATIVE (NEGATIVE) 05/11/22 05/11/22 05/11/22 Range/Units 02:32 02:31 02:31 WBC (4.0-10.5) x10^3/uL RBC (4.1-5.4) x10^6/uL Hgb (12.0-16.0) g/dL Hct (35-47) % MCV (78-100) fL MCH (26-32) pg MCHC (32-36) g/dL RDW (11.5-14.0) % Plt Count (150-450) x10^3/uL MPV (7.5-11.0) fL Gran % (36.0-66.0) % Immature Gran % (Auto) (0.00-0.4) % Nucleat RBC Rel Count (0.00-0.1) % Eos # (Auto) (0-0.5) x10^3/uL Immature Gran # (Auto) (0.00-0.03) x10^3u/L Absolute Lymphs (auto) (1.0-4.6) x10^3/uL Absolute Monos (auto) (0.0-1.3) x10^3/uL Absolute Nucleated RBC (0.00-0.01) x10^3u/L Lymphocytes % (24.0-44.0) % Monocytes % (0.0-12.0) % Eosinophils % (0.00-5.0) % Basophils % (0.0-0.4) % Absolute Granulocytes (1.4-6.9) x10^3/uL Basophils # (0-0.4) x10^3/uL Sodium (137-145) mmol/L Potassium (3.5-5.1) mmol/L Chloride (98-107) mmol/L Carbon Dioxide (22-30) mmol/L Anion Gap (5-15) MEQ/L BUN (7-17) mg/dL Creatinine (0.52-1.04) mg/dL Estimated GFR ML/MIN Glucose (74-106) mg/dL Calcium (8.4-10.2) mg/dL Total Bilirubin (0.2-1.3) mg/dL AST (14-36) U/L ALT (0-35) U/L Alkaline Phosphatase (38-126) U/L Serum Total Protein (6.3-8.2) g/dL Albumin (3.5-5.0) g/dL Urinalys Dipstick Clnc MAIN LAB Urine Color YELLOW (YELLOW) Urine Appearance CLEAR (CLEAR) Urine pH 6.5 (5-6) Ur Specific [place] 1.025 (1.005-1.025) POC Urine Protein Conf 30 (Negative) Urine Ketones NEGATIVE (NEGATIVE) Urine Nitrite NEGATIVE (NEGATIVE) Urine Bilirubin NEGATIVE (NEGATIVE) Urine Urobilinogen 0.2 (0-1) mg/dL Urine Leukocytes NEGATIVE (NEGATIVE) Urine WBC (Auto) 6-10 (0-5) /HPF Urine RBC (Auto) 0-2 (0-2) /HPF U Epithel Cells (Auto) NONE (FEW) /HPF Urine Bacteria (Auto) NONE SEEN (NEGATIVE) /HPF Urine RBC NEGATIVE (0-5) Ramone/ul Urine Mucus (Auto) MANY (NEGATIVE) /HPF Ur Culture Indicated? ORDERED SEPARATELY Urine Glucose NEGATIVE (NEGATIVE) mg/dL Urine HCG, Qual NEGATIVE (Negative) Salicylates (2-20) mg/dL Urine Opiates Level NEGATIVE (NEGATIVE) Ur Methadone NEGATIVE (NEGATIVE) Acetaminophen (10-30) ug/ml Urine Barbiturates NEGATIVE (NEGATIVE) Ur Phencyclidine (PCP) NEGATIVE (NEGATIVE) Urine Amphetamine POSITIVE (NEGATIVE) U Benzodiazepine Level NEGATIVE (NEGATIVE) Urine Cocaine NEGATIVE (NEGATIVE) Urine Marijuana (THC) POSITIVE (NEGATIVE) Ethyl Alcohol (0-10) mg/dL Influenza Type A Ag (NEGATIVE) Influenza Type B Ag (NEGATIVE) RSV (PCR) (Negative) SARS-CoV-2 (PCR) (NEGATIVE) - Progress Progress: improved Progress Note: Patient reassessed. She is sleeping. CT head negative. Potassium 3.3. Po tassium replacement ordered. COVID test negative. Case discussed with Dr. Jayant Hussein who accepts admission to observation. Patient's family updated on plan of care. Patient positive for alcohol. Alcohol 227. Marijuana positive. Amphetamine positive. EKG sinus rhythm rate of 65 Portions of this note were created with voice recognition technology. There may be grammatical, spelling, punctuation or sound alike errors 05/11/22 04:[address] Lawrence Will see patient in: hospital (observation) Counseled pt/family regarding: lab results, diagnosis, rad results - Departure Departure Disposition: Observation Clinical Impression: Amphetamine use, Alcohol intoxication, Marijuana use Condition: Stable Critical Care Time: No Referrals: THERESA FINK MD [Primary Care Provider] - Follow up/PCP as directed Additional Instructions: Discharge/Care Plan LUPIS MOORE'Day was seen on 05/11/22 in the Emergency Room. The patient was counseled regarding Diagnosis,Lab results, Imaging studies, need for follow up and when to return to the Emergency Room. Prescriptions given: Discharge Note I have spoken with the patient and/or caregivers. I have explained the patient's condition, diagnosis and treatment plan based on the information available to me at this time. I have answered the patient's and/or caregiver's questions and addressed any concerns. The patient and/or caregivers have as good understanding of the patient's diagnosis, condition and treatment plan as can be expected at this point. The vital signs have been stable. The patient's condition is stable and appropriate for discharge from the emergency department. The patient will pursue further outpatient evaluation with the primary care physician or other designated or consulting physician as outlined in the discharge instructions. The patient and/or caregivers are agreeable to this plan of care and follow-up instructions have been explained in detail. The patient and/or caregivers have received these instruction. The patient/and or caregivers are aware that any significant change in condition or worsening of symptoms should prompt an immediate return to this or the closest emergency department or call 911.
[2022-05-11] MEDS ORDERED: Sodium Chloride 0.9% 1000 ML 1,000 ML IV SCH ×2 (02:00→05:03)
[2022-05-11] MEDS ORDERED: Sodium Chloride 0.9% 1000 ML 1,000 ML ONE (02:34)
[2022-05-11 02:42] LABS: Absolute Neutrophil Ct (ANC) 2.92 x10^3/uL (1.4-6.9); Basophil (Absolute #) 0.04 x10^3/uL (0-0.4); Eosinophil % 2.7 % (0.00-5.0); Eosinophil (Absolute #) 0.17 x10^3/uL (0-0.5); Hematocrit 35.8 % (35-47); Hemoglobin 11.6 g/dL (12.0-16.0); Lymphocyte (Absolute #) 2.65 x10^3/uL (1.0-4.6); Lymphocytes % 42.8 % (24.0-44.0); Mean Cell Volume 89.9 fL (78-100); Mean Corpuscular Hemoglobin 29.1 pg (26-32); Mean Corpuscular Hgb Concent. 32.4 g/dL (32-36); Mean Platelet Volume 9.4 fL (7.5-11.0); Monocyte (Absolute #) 0.39 x10^3/uL (0.0-1.3); Monocytes % 6.3 % (0.0-12.0); Neutrophil % 47.3 % (36.0-66.0); Platelet Count 312 x10^3/uL (150-450); Red Blood Count 3.98 x10^6/uL (4.1-5.4); Red Cell Distribution Width 12.3 % (11.5-14.0); White Blood Count 6.2 x10^3/uL (4.0-10.5)
[2022-05-11 02:45] LABS: Appearance CLEAR (CLEAR); Mucus MANY /HPF (NEGATIVE); RBC 0-2 /HPF (0-2)
[2022-05-11 02:46] LABS: Bacteria NONE SEEN /HPF (NEGATIVE); Bilirubin NEGATIVE (NEGATIVE); Dipstick done @ ? MAIN LAB; Glucose NEGATIVE (NEGATIVE); Ketones NEGATIVE (NEGATIVE); Nitrite NEGATIVE (NEGATIVE); Ph 6.5 (5-6); Protein,Urine Dip 30 (Negative); RBC NEGATIVE Ery/ul (0-5); Specific Gravity 1.025 (1.005-1.025); Urine Cultured Indicated? ORDERED SEPARATELY; Urobilinogen 0.2 mg/dL (0-1)
[2022-05-11 02:51] LABS: ACETAMINOPHEN < 10 ug/ml (10-30); ALBUMIN 4.2 g/dL (3.5-5.0); ALKALINE PHOSPHATASE 85 U/L (38-126); ANION GAP 15.4 MEQ/L (5-15); BLOOD UREA NITROGEN 14 mg/dL (7-17); CHLORIDE 104 mmol/L (98-107); Calcium 9.4 mg/dL (8.4-10.2); Carbon Dioxide 23 mmol/L (22-30); Creatinine 1 0.81 mg/dL (0.52-1.04); EST GLOMERULAR FILTRATION RATE > 60.0 ML/MIN; ETHYL ALCOHOL 227 mg/dL (0-10); Glucose 84 mg/dL (74-106); Potassium 3.3 mmol/L (3.5-5.1); SALICYLATE < 1.0 mg/dL (2-20); SGOT/AST 25 U/L (14-36); SGPT/ALT 15 U/L (0-35); SODIUM 140 mmol/L (137-145); Total Protein 7.5 g/dL (6.3-8.2)
[2022-05-11 03:00] LABS: Barbiturate,Urine NEGATIVE (NEGATIVE); Benzodiazepine,Urine NEGATIVE (NEGATIVE); Cocaine,Urine NEGATIVE (NEGATIVE); Methadone,Urine NEGATIVE (NEGATIVE); Opiate,Urine NEGATIVE (NEGATIVE); PCP,Urine NEGATIVE (NEGATIVE); THC,Urine POSITIVE (NEGATIVE)
[2022-05-11 03:16] LABS: Amphetamine,Urine POSITIVE (NEGATIVE)
[2022-05-11 04:12] LABS: INFLUENZA A NEGATIVE (NEGATIVE); INFLUENZA B NEGATIVE (NEGATIVE); RESPIRATORY SYNCTIAL VIRUS NEGATIVE (Negative); SARS-CoV-2 Xpert Express NEGATIVE (NEGATIVE)
[2022-05-11] MEDS: POTASSIUM CHLORIDE 20 mEq IN WATER 100ML 20 MEQ/100 ML BAG IV SCH ×2 (04:30→06:25)
[2022-05-11] MEDS ORDERED: Zofran 4 MG/2 ML VIAL IV PRN (05:03)
[2022-05-11] MEDS ORDERED: Ativan 2 MG/1 ML VIAL IM ONE (08:25)
[2022-05-11] MEDS ORDERED: Ativan 2 MG/1 ML VIAL IM PRN (08:25)
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
[2022-05-11] MEDS ORDERED: Phenergan 25 MG INJ IM STA (08:54)
[2022-05-11] MEDS ORDERED: Phenergan 25 MG INJ ONE (08:55)
--- NOTE | 2022-05-11 09:08 | XRAY ---
Indication: Altered mental status. Head injury. Multiple contiguous axial images obtained through the head without contrast. Comparison: None Normal appearing brain parenchyma, ventricles, and bony calvarium. Visualized paranasal sinuses and mastoid air cells are clear. Impression: Normal CT head without contrast exam. Comment: Preliminary interpretation made by [facility]. No critical discrepancy.
[2022-05-11 12:27] VITALS: BP 107/70; PULSE 102; O2SAT 99
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
== END 2022-05-11 16:04 | disposition home or self-care (01) ==
LOC: ED 01:49 → MED SURG 04:52
PROVIDERS: ADMIT Family Medicine; ATTEND Family Medicine
DX: F10.129 Alcohol abuse with intoxication, unspecified (principal); F19.10 Other psychoactive substance abuse, uncomplicated; E87.6 Hypokalemia; Z20.828 Contact with and (suspected) exposure to other viral communicable diseases; Z72.0 Tobacco use
CPT/HCPCS: 0241U; 36000; 36415; 51702; 70450; 80053; 80307; 81015; 81025; 84132; 85025; 87086; 93041; 96374; 93268; 99285; J2060; J2550; J3480; G0378; G0480